=== PATIENT | male | born 1985 | race African-American/Black ===

== ENCOUNTER 2023-07-01 09:04 | Outpatient (REF) | payer OTHER, SELFPAY ==
--- NOTE | ~2023-07-01 | XR_ITS ---
Exam: AP views of both knees weightbearing, 2 views left knee and 2 views right knee HISTORY: Pain. FINDINGS: There are no fractures or dislocations. No joint effusion is identified. No bone, joint or soft tissue abnormality is demonstrated. XR/XR knee RT 2V IMPRESSION: No evidence of arthritis or focal lesion. No fracture.
--- NOTE | ~2023-07-01 | XR_ITS ---
Exam: AP views of both knees weightbearing, 2 views left knee and 2 views right knee HISTORY: Pain. FINDINGS: There are no fractures or dislocations. No joint effusion is identified. No bone, joint or soft tissue abnormality is demonstrated. XR/XR knee standing BI IMPRESSION: No evidence of arthritis or focal lesion. No fracture.
--- NOTE | ~2023-07-01 | XR_ITS ---
XR/XR knee LT 2V IMPRESSION: No evidence of arthritis or focal lesion. No fracture. Exam: AP views of both knees weightbearing, 2 views left knee and 2 views right knee HISTORY: Pain. FINDINGS: There are no fractures or dislocations. No joint effusion is identified. No bone, joint or soft tissue abnormality is demonstrated.
== END 2023-07-01 09:05 | disposition home or self-care (01) ==
LOC: HO.HOSX 09:04
PROVIDERS: Visit Provider Orthopaedic Surgery
DX: M25.561 Pain in right knee (principal); M25.562 Pain in left knee; M72.2 Plantar fascial fibromatosis
CPT/HCPCS: 73560; 73565

== ENCOUNTER 2023-07-01 12:05 | Outpatient (AMB) | payer OTHER, SELFPAY ==
--- NOTE | 2023-07-01 12:06 | MHC.OFFVIS ---
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 He has previously been seen at [facility] where he was referred to Physical therapy with no relief. Currently his left knee is worse, intermittent pain that worsens with activity. Pain is mainly in his anterior aspect knee and calf. States he cont's to do his knee exercises at home along with motrin and provides little relief. Denies numbness and tingling. 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 He complains of pain with daily activity, worse with prolonged standing or walking. He says his pain has been present for several years, and is worse in his left knee. He says the pain is mostly in the anterior aspect of his knee. 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 He says when he is lying down he feels the muscles in his knees tense and relax . He denies any buckling or falls, but he finds it difficult at times to stand from a deep squat. He was previously being seen at [facility], who ordered PT. He says the PT has been unhelpful and he continues to have pain. He performs his exercises at home and takes Motrin, with no relief. He has modified his footwear based on his PCP recommendation. He has plantar fasciitis and says this has helped some of his foot pain. 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 Review of Systems Const All systems reviewed & are unremarkable except as noted in HPI and below Physical Exam Vital Signs: BMI result Body Mass Index 24.4 Const General: no acute distress, alert and awake Orientation/consciousness: patient oriented x3 HEENT Head: Yes normocephalic and Yes atraumatic Eyes EOM: EOMs intact bilaterally Resp Effort & Inspection: normal respiratory effort and able to speak in complete sentences Cardio Jugular venous distension: no JVD Skin General skin exam: turgor normal Rashes: no rashes Neuro General: patient oriented x3 Extrem Other: Bilateral Knees: Mild crepitus Otherwise benign exam Psych Appearance: grossly normal Affect: normal affect Attitude: cooperative Results Reviewed Results Reviewed: I personally reviewed bilateral knee radiographs and they are unremarkable Assessment & Plan Assessment & Plan (1) Bilateral anterior knee pain: Code(s): M25.561 - Pain in right knee; M25.562 - Pain in left knee Plan: This is a 37 year old man with bilateral anterior knee pain. He has pain with daily activity, worse with prolonged standing, ambulation, or standing from a seated position. He finds it painful and difficult to stand from a deep squat, and his pain is localized to the anterior aspect of his knee. He found no relief from PT and denies any other treatment. I discussed his diagnosis and treatment options. I recommend quad, core, hip, and gluteal strengthening and closed-chain exercises or using a stationary bicycle. I discussed the safe use of NSAIDs. He can follow up prn. (2) Plantar fasciitis: Code(s): M72.2 - Plantar fascial fibromatosis Plan Scribed for Casper Moraes MD by Getachew Miller, bilingual medical assistant, on 07/01/23 at 12:45 PM, EST. Orders: Orders XR knee LT 2V Today M25.569 - Pain in unspecified knee XR knee RT 2V Today M25.569 - Pain in unspecified knee XR knee standing BI Today M25.569 - Pain in unspecified knee Coding Level of Care Code New Pt Level 3 (72497) Diagnoses Bilateral anterior knee pain M25.561; M25.562 Plantar fasciitis M72.2
[2023-07-01 12:21] VITALS: BMI 24.4
== END 2023-07-01 12:53 | disposition home or self-care (01) ==
PROVIDERS: PCP Nurse Practitioner Adult Health; Visit Provider Orthopaedic Surgery
DX: M25.561 Pain in right knee (principal); M25.562 Pain in left knee; M72.2 Plantar fascial fibromatosis
CPT/HCPCS: 99203